=== PATIENT | female | born 1985 | race Caucasian/White ===

== ENCOUNTER 2017-12-26 12:05 | Emergency (ER) | payer OTHER ==
[2017-12-26 22:29] VITALS: BP 118/74; PULSE 116; RESP 18; TEMP 98.5; O2SAT 98
--- NOTE | 2017-12-27 08:59 | OBHP ---
Datetime: 12/26/2017 13:11 IP Adm Impression: Postterm, intrauterine IP Admit Plan: Observation/Evaluation; Discharge home (Annotations: Data stored by CPN on behalf of user) Admit Comment, IP Provider: 32 y/o , 40.1 weeks with LMP 03/20/17 and TONIA of 12/25/10 presents to [facility] with uterine contractions. Uterine contractions, pressure and low back pain started at 10PM last night, every 10 mins lasting for 30 secs till 8AM this morning. Since than patient reports having ir regular contractions. Denies any LOF, vaginal bleeding, nausea, vomiting, diarrhea. Tolerating diet w ell PO. PNC: Dr. Jara course: Hx of BP>130/80 on 2 occasions and tachycardia furing POBHx: None PGynHx: Denies abn pap PMHx: None Medications: Feosol and PNV F/H: GM- DM Allergies: None Social H/X: Denies smoking/alcohol/drugs PE: General: No acute distress, Well Chest: Tachycardiac, No murmurs, S1S2 present Lungs: CTA B/L, No rales, rhonchi or wheeze Abdomen: Gravid, NT Ext: No calf tenderness, pedal edema SVE: Fingertip/soft/-3 A/P: 32 y/o , 40.1 weeks with LMP 03/20/17 and TONIA of 12/25/10 presents to [facility] with uterine con tractions. - Post term pregnnacy Plan - EFM and [place] monitoring - NST ractive, Accelerations, No decelerations, Irregular contractions - Patient advised to continue home BP monitoring twice a day - Maintain hydration, Continue walking and regular diet as tolerated - F/U with Dr. Jara/Dr. Reeves on 12/30/17 - Consider IOL if no progression till 41 weeks or 12/31/17. - All question answered, pt verbalized understanding - Labor precautions provided Deni Kelley, PGY1 Pelvic Type - PN: Not Done Extremities - PN: Normal Abdomen - PN: Normal Back - PN: Not Done Breast - PN: Not Done Lungs - PN: Normal Heart - PN: Normal Thyroid - PN: Not Done Neurologic - PN: Normal HEENT - PN: Normal General - PN: Normal FHR - Baseline A Provider: 140 Membranes, Provider: Intact Contraction Comments Provider: Irregular Comments, ACOG Physical Exam: General: No acute distress, Well Chest: Tachycardiac, No murmurs, S1S2 present Lungs: CTA B/L, No rales, rhonchi or wheeze Abdomen: Gravid, NT Ext: No calf tenderness, pedal edema SVE: Fingertip/soft/-3 EGA AdmitDate IP: 40.1 Vital Signs Provider: Reviewed IP Chief Complaint: Uterine contractions; Maternal discomfort NICHD Variability Prov Fetus A: Marked >25bpm NICHD Accel Fetus A IP Provider: 15X15 FHR Category Provider Fetus A: Category I NICHD Decel Fetus A IP Provider: None Dilatation, Provider: 0 Effacement, Provider: soft Station, Provider: -3 Genitourinary Exam: Normal DTRs - PN: Not Done
== END 2017-12-26 13:35 | disposition home or self-care (01) ==
LOC: H.EROB2 12:05 → H.EROB 13:07 → H.EROB2 13:35
DX: O47.1 False labor at or after 37 completed weeks of gestation (principal); O48.0 Post-term pregnancy; Z3A.40 40 weeks gestation of pregnancy; O26.93 Pregnancy related conditions, unspecified, third trimester; R10.2 Pelvic and perineal pain; M54.5 Low back pain

== ENCOUNTER 2017-12-30 14:00 | Inpatient (IN) | payer OTHER ==
[2017-12-30 15:25] VITALS: BMI 25.5
[2017-12-30] MEDS: Lactated Ringer's 1,000 ML IV SCH ×2 (15:45→17:10)
[2017-12-30 16:11] LABS: BASO % 0.2 % (0.0-2.0); EOS % 0.2 % (0.0-4.0); HEMOGLOBIN 12.9 g/dL (12.0-16.0); LYMPH # 1.7 K/uL (1.0-4.3); MEAN CELL VOLUME 83.5 fl (81.0-99.0); MEAN CORPUSCULAR HEMOGLOBIN 28.5 pg (27.0-31.0); MEAN CORPUSCULAR HGB CONC 34.2 g/dL (33.0-37.0); MEAN PLATELET VOLUME 8.7 fl (7.2-11.7); MONO # 1.1 K/uL (0.0-0.8); NEUT # 15.7 K/uL (1.8-7.0); NEUT % 84.6 % (50.0-75.0); PLATELET COUNT 216 K/uL (130-400); RBC 4.53 Mil/uL (3.80-5.20); RED CELL DISTRIBUTION WIDTH 20.4 % (11.5-14.5); WHITE BLOOD COUNT 18.5 K/uL (4.8-10.8)
--- NOTE | 2017-12-30 17:08 | OBADHP ---
Datetime: 12/30/2017 15:24 Admit Comment, IP Provider: 32 y/o , 40.5 weeks, based on LMP 03/20/17 and TONIA of 12/25/10 present s to [facility] with uterine contractions and maternal discomfort. Patient came to [facility] on 12/26/17 and 0 for similar contractions but patient reports contractions are every 5 minutes, pressure with LOF at around 13:45 today. As per patient Dr. Jara saw her and told that she is 2-3 cm dialted. Reports feel ing normal movements. Denies vaginal bleeding, nausea, vomiting, diarrhea. Tolerating diet well PO. PNC: Dr. Jara course: Hx of BP>130/80 on 2 occasions and tachycardia during , Home BP monitori ng POBHx: None PGynHx: Denies abn pap PMHx: None Medications: Feosol and PNV F/H: GM- DM Allergies: None Social H/X: Denies smoking/alcohol/drugs PE: General: Mild distress Chest: Tachycardiac, No murmurs, S1S2 present Lungs: CTA B/L, No rales, rhonchi or wheeze Abdomen: Gravid, NT Ext: No calf tenderness, No pedal edema SSE: Pooling of clear fluid in posterior fornix, No active vaginal bleeding A/P: 32 y/o , 40.5 weeks, based on LMP 03/20/17 and TONIA of 12/25/10 presents to [facility] with uterin e contractions and maternal discomfort. - Early labor - Ruptured membrane - Postterm - EFM and toco monitoring - Regular contractions, NST reactive, Baseline 150 with marked accelerations, No decelerations. - 2-3 cm dialted today as per Dr. Jara - Clear liquid diet/juice - Admit patient to unit Addendum by Dr. Reeves: I have evaluated the patient independently and I agree with the above FHR - Baseline A Provider: 150 Amniotic Fluid Color, Provider: Clear Membranes, Provider: Ruptured Contraction Comments Provider: Regular Comments, ACOG Physical Exam: General: Mild distress Chest: Tachycardiac, No murmurs, S1S2 present Lungs: CTA B/L, No rales, rhonchi or wheeze Abdomen: Gravid, NT Ext: No calf tenderness, No pedal edema SSE: Pooling of clear fluid in posterior fornix, No active vaginal bleeding Pool Provider: Positive Vital Signs Provider: Reviewed IP Chief Complaint: Uterine contractions; Suspected ruptured membranes; Maternal discomfort NICHD Variability Prov Fetus A: Moderate 6-25bpm NICHD Accel Fetus A IP Provider: 15X15 EGA AdmitDate IP: 40.5 IP Adm Impression: Postterm, intrauterine ; Ruptured Membranes IP Admit Plan: Admit to unit; Observation/Evaluation Datetime: 12/28/2017 12:03 Pelvic Type - PN: Adequate Extremities - PN: Normal Abdomen - PN: Normal Lungs - PN: Normal Heart - PN: Normal Neurologic - PN: Normal HEENT - PN: Normal General - PN: Normal Presentation-Admit: Vertex FHR Category Provider Fetus A: Category I NICHD Decel Fetus A IP Provider: None Dilatation, Provider: 0 Effacement, Provider: 0 Station, Provider: -3 Genitourinary Exam: Normal Datetime: 12/26/2017 13:11 Back - PN: Not Done Breast - PN: Not Done Thyroid - PN: Not Done DTRs - PN: Not Done
[2017-12-30 17:23] LABS: LYMPHOCYTE 13 % (20-50); MONOCYTE 6 % (0-10); NEUTROPHIL 81 % (42-75); TOTAL CELLS COUNTED 100
[2017-12-30 17:24] LABS: ANISOCYTOSIS MODERATE; OVALOCYTES SLIGHT; PLATELET ESTIMATE NORMAL (NORMAL)
[2017-12-30] MEDS ORDERED: Oxytocin 30 UNIT 30 UNITS/500 ML BAG IV ONE (18:42)
[2017-12-30] MEDS: Fentanyl/Bupivacaine HCl 250 ML EPI ONE ×2 (18:47→18:48)
--- NOTE | 2017-12-30 18:58 | OBPN ---
Datetime: 12/30/2017 18:44 IP Progress Impression: Normal progression of labor IP Informed Consent Obtain: Vaginal Delivery IP Procedures: Sterile Vag Exam IP Progress Plan: Continue present management Membranes, Provider: Ruptured Contraction Comments Provider: q 3 mins FHR - Baseline A Provider: 150 IP Progress Note Comment: Patient evaluated, comfortable s/p epidural VE=/-1 SOH=200 mod mejia, +accels, no decels TOCO - ctxning q 3 mins A/P 1. Patient ruptured now 7cm, rom. Will start pitocin for augmentaton 2. CEFM and TOCO 3. Re-evaluate as needed Vital Signs Provider: Reviewed; Within Normal Limits NICHD Accel Fetus A IP Provider: 15X15 NICHD Variability Prov Fetus A: Moderate 6-25bpm Dilatation, Provider: 7 Effacement, Provider: 90 Station, Provider: -1 NICHD Decel Fetus A IP Provider: None Datetime: 12/30/2017 15:24 Pool Provider: Positive Amniotic Fluid Color, Provider: Clear Datetime: 12/28/2017 12:03 Presentation-Admit: Vertex FHR Category Provider Fetus A: Category I
[2017-12-30] MEDS ORDERED: Lidocaine 1% MPF (30 ml) Inj ONE (23:20)
[2017-12-31] MEDS: Lactated Ringer's 1,000 ML IV SCH ×3 (02:45→19:35)
--- NOTE | 2017-12-31 07:41 | OBPN ---
Datetime: 12/31/2017 07:34 IP Progress Impression: Arrest of dilatation/descent IP Informed Consent Obtain: Section Delivery Contraction Comments Provider: ctxns q 2 mins FHR - Baseline A Provider: 160 IP Progress Note Comment: Patient evaluated , has been pushing for 5 hours with no delivery. Discuss ed with patient she is considered an arrest of labor, recommendation is for for delivery. A dvised of risks/benefits of surgery including risk of bleeding, infection, damage to surrounding orga ns. Patient signed informed consent, Ancef to be given pre-operatively, pt en route to OR when availa ble Vital Signs Provider: Reviewed; Within Normal Limits NICHD Accel Fetus A IP Provider: 15X15 NICHD Variability Prov Fetus A: Moderate 6-25bpm Dilatation, Provider: 10 Effacement, Provider: 100 Station, Provider: 2 NICHD Decel Fetus A IP Provider: None Datetime: 12/30/2017 19:52 Membranes, Provider: Ruptured FHR Category Provider Fetus A: Category I
[2017-12-31] MEDS ORDERED: Phenylephrine 10 mg/ml Inj ONE (07:43)
[2017-12-31] MEDS ORDERED: CHLOROPROCAINE HCL 3% IJ ONE (07:43)
[2017-12-31] MEDS ORDERED: ePHEDrine 50 mg/ml Inj ONE (07:43)
[2017-12-31] MEDS ORDERED: ceFAZolin 2 GM in Sodium Chloride 0.9% 100 ML IVPB ONE (07:45)
[2017-12-31] MEDS ORDERED: Oxytocin 30 UNIT 30 UNITS/500 ML BAG IV ONE (07:54)
[2017-12-31] MEDS ORDERED: OXYTOCIN/0.9 % NS 20 UNIT/1,000 ML BAG IV SCH (08:00)
[2017-12-31] MEDS ORDERED: Morphine 1 mg/ml preservative-free Inj(Duramorph) ONE (08:22)
[2017-12-31] MEDS ORDERED: Absorbable Gelatin Sponge Size 12-7 ONE (09:41)
[2017-12-31] MEDS ORDERED: Oxycodone/Acetaminophen 5/325 mg Tab PO PRN (10:26)
[2017-12-31] MEDS ORDERED: Morphine 1 mg/ml preservative-free Inj(Duramorph) EPI ONE (10:50)
[2017-12-31] MEDS ORDERED: DiphenhydrAMINE 50 mg/ml Inj IVP PRN (10:50)
[2017-12-31] MEDS ORDERED: Phenylephrine 0.25% NASAL Spray (15ML) NAS PRN (19:57)
[2017-12-31] MEDS ORDERED: Nasal Spray(Ocean spray) NAS PRN (20:00)
[2018-01-01] MEDS: Lactated Ringer's 1,000 ML IV SCH (02:09)
[2018-01-01 06:35] LABS: HEMOGLOBIN 9.3 g/dL (12.0-16.0); MEAN CELL VOLUME 86.1 fl (81.0-99.0); MEAN CORPUSCULAR HEMOGLOBIN 28.9 pg (27.0-31.0); MEAN CORPUSCULAR HGB CONC 33.5 g/dL (33.0-37.0); RBC 3.22 Mil/uL (3.80-5.20); RED CELL DISTRIBUTION WIDTH 20.1 % (11.5-14.5); WHITE BLOOD COUNT 16.8 K/uL (4.8-10.8)
[2018-01-01] MEDS ORDERED: Nasal Spray(Ocean spray) NAS PRN (07:21)
[2018-01-01] MEDS ORDERED: Oxycodone/Acetaminophen 5/325 mg Tab PO PRN (07:21)
[2018-01-01] MEDS: Multivitamin With Minerals Tab PO SCH (08:42)
[2018-01-01] MEDS ORDERED: Multivitamin With Minerals Tab PO SCH (09:00)
--- NOTE | 2018-01-01 12:59 | OBPPN ---
Datetime: 01/01/2018 10:00 PP Pain Prov: Within normal limits PP Nausea Prov: Denies PP Flatus Prov: No PP BM Prov: No PP Breasts Prov: Normal PP Heart Prov: Normal PP Lungs Prov: Normal PP Abdomen/Uterus Prov: Normal PP Vulva/Perineum Prov: Normal PP Extremities Prov: Normal PP C/S Incision Prov: Normal PP Progress Prov: Normal PP Comments Phys Exam Prov: hgb12.9--9.3 today PP Impression Prov: Normal progression PP Plan Prov: Continue present management; consult PP Progress Note Prov: s: tolerated reg diet. denies malaise, palpitations, syncope denies flatus i: pod1 s/p prim cd Decreased HGB Tachycardia since admission Hemodynamically stable with norml orthostatics and good urine output p: repeat cbc ambulate senokot s IS IP PP Procedures: None Vital Signs Provider PP: Reviewed Vital Signs Provider Details PP: [id number] PP// 100-130 AP
[2018-01-01 14:17] LABS: BASO % 0.1 % (0.0-2.0); EOS # 0.2 K/uL (0.0-0.7); EOS % 0.9 % (0.0-4.0); HEMOGLOBIN 9.9 g/dL (12.0-16.0); LYMPH # 1.8 K/uL (1.0-4.3); LYMPH % 9.7 % (20.0-40.0); MEAN CELL VOLUME 84.7 fl (81.0-99.0); MEAN CORPUSCULAR HEMOGLOBIN 29.1 pg (27.0-31.0); MEAN CORPUSCULAR HGB CONC 34.3 g/dL (33.0-37.0); MEAN PLATELET VOLUME 8.1 fl (7.2-11.7); MONO # 0.9 K/uL (0.0-0.8); MONO % 4.9 % (0.0-10.0); NEUT # 16.1 K/uL (1.8-7.0); NEUT % 84.4 % (50.0-75.0); NRBC % 0.1 % (0.0-0.0); RBC 3.39 Mil/uL (3.80-5.20); RED CELL DISTRIBUTION WIDTH 19.5 % (11.5-14.5); WHITE BLOOD COUNT 19.1 K/uL (4.8-10.8)
[2018-01-01] MEDS: Simethicone 80 mg Chewtab PO PRN (19:30)
--- NOTE | 2018-01-01 19:50 | OBPPN ---
Datetime: 01/01/2018 19:40 PP Progress Note Prov: Called by nurse who stated patient had an episode of bilious type EMESIS S: Patient states she tolerated breakfast and lunch well. She states that she had some pineapple p rune juice banana and then had the episode of emesis. She reports passing gas earlier this morning wh en she was using the bathroom and states it was just a small amount. Objective: Distended abdomen no guarding slight rebound; hypoactive bowel sounds; not appearing mo re distended since this morning Impression postop day #1 status post delivery with one episode of emesis Evaluate ileus Plan: Abdominal flat plate Ice chips until abdominal x-ray results Mylicon Patient spells advised to buy patient chewing gum with regular sugar
[2018-01-02] MEDS: Docusate-Senna 50 mg-8.6 mg Tab PO SCH (00:43)
--- NOTE | 2018-01-02 05:10 | CP.PCM.CON ---
<Antwan Manrique - Last Filed: 01/02/18 07:44> History of Present Illness - History of Present Illness History of Present Illness: General Surgery Note for Dr. Kelley Reason for consult: Ileus, nausea/vomiting 32 F s/p POD#2 with no other significant PMH presents with complaint of a abdominal pain, nausea/vomiting. Patient was seen and evaluated on the Maternity Floor. Patient states yesterday afternoon she had some abdominal pain accompanied by an episode of nausea/vomiting with NBNB emesis. Patient reports eating prune juice and banana prior to the episode. She reports the pain at that time felt like "gas pains." Patient states her last BM was about 3 days ago before she delivered. ABXR was perfromed which revealed ileus. Overnight, she reports to passing flatus a few times. Patient currently denies any pain or nausea/vomiting. She reports to sleeping comfortably overnight and was able to breast feed this morning. Admits constipation. Denies fever/chills, chest pain, SOB, palpitations, diarrhea, incontinence, numbness/tingling, urinary symptoms. PMH: Denies Meds: As per MAR All: NKDA PSH: POD#2 FH: non-contributory Social: Denies tobacco/EtOH/illicit drug especially during , works as supervisor computer operations Review of Systems - Review of Systems All systems: reviewed and no additional remarkable complaints except (as per HPI ) Past Patient History - Past Social History Smoking Status: Never Smoked Meds Allergies/Adverse Reactions: Allergies Allergy/AdvReac Type Severity Reaction Status Date / Time No Known Allergies Allergy Verified 12/26/17 12:47 - Medications Medications: Current Medications Bisacodyl (Dulcolax) 10 mg WA ONCE PRN PRN Reason: Bladder Spasm Ibuprofen (Motrin Tab) 600 mg PO Q6H PRN PRN Reason: Pain, Mild (1-3) Last Admin: 01/01/18 08:42 Dose: 600 mg Multivitamins/Minerals (Therapeutic-M Tab) 1 tab PO DAILY CHEL Last Admin: 01/01/18 08:42 Dose: 1 tab Oxycodone/Acetaminophen (Percocet 5/325 Mg Tab) 1 tab PO Q4 PRN PRN Reason: Pain, moderate (4-7) Stop: 01/03/18 10:27 Senna/Docusate Sodium (Senokot S 50 Mg-8.6 Mg) 2 tab PO HS CHEL Last Admin: 01/02/18 00:43 Dose: 2 tab Simethicone (Mylicon Chew Tab) 80 mg PO TID PRN PRN Reason: Flatulence Last Admin: 01/01/18 19:30 Dose: 80 mg Sodium Chloride (Lamb Nasal [place]) 2 sprays LISS Q4 PRN PRN Reason: Nasal congestion Physical Exam - Constitutional Appears: No Acute Distress - Head Exam Head Exam: ATRAUMATIC, NORMOCEPHALIC - Eye Exam Eye Exam: EOMI, Normal appearance Pupil Exam: PERRL - ENT Exam ENT Exam: Mucous Membranes Moist - Neck Exam Neck exam: Positive for: Normal Inspection - Respiratory Exam Respiratory Exam: NORMAL BREATHING PATTERN - Cardiovascular Exam Cardiovascular Exam: REGULAR RHYTHM - GI/Abdominal Exam GI & Abdominal Exam: Distended, Soft. absent: Firm, Guarding, Hernia, Rebound, Rigid, Tenderness Additional comments: transverse suprapubic incision s/p - clean, dry, intact with steri- strips - Extremities Exam Extremities exam: Positive for: normal capillary refill, pedal pulses present. Negative for: calf tenderness - Back Exam Back exam: absent: CVA tenderness (L), CVA tenderness (R) - Neurological Exam Neurological exam: Alert, Oriented x3 - Psychiatric Exam Psychiatric exam: Normal Affect, Normal Mood - Skin Skin Exam: Dry, Intact, Normal Color, Warm Results - Labs Result Diagrams: 01/01/18 13:34 Labs: Laboratory Results - last 24 hr 01/01/18 01/01/18 05:35 13:34 WBC 16.8 H 19.1 H RBC 3.22 L 3.39 L Hgb 9.3 L D 9.9 L Hct 27.8 L 28.7 L MCV 86.1 D 84.7 MCH 28.9 29.1 MCHC 33.5 34.3 RDW 20.1 H 19.5 H Plt Count 176 211 MPV 8.1 Neut % (Auto) 84.4 H Lymph % (Auto) 9.7 L [place] % (Auto) 4.9 Eos % (Auto) 0.9 Baso % (Auto) 0.1 Neut # (Auto) 16.1 H Lymph # (Auto) 1.8 [place] # (Auto) 0.9 H Eos # (Auto) 0.2 Baso # (Auto) 0.0 Assessment & Plan - Assessment and Plan (Free Text) Assessment: 32F s/p POD#2 who presents with ileus; patient is passing flatus Plan: -CLD, ADAT -Stool softners -Simethicon -Chewing gum PRN -Pain control with non-opiates -Encourage OOB/Ambulation/IS -Monitor for bowel function -No surgical intervention needed at this time -Discharge planning as per BILLET STRAIGHTENER -Discussed with Dr. Warren Manrique PGY2 - Date & Time Date: 01/02/18 Time: 05:15 <David Kelley - Last Filed: 01/02/18 16:04> Meds - Medications Medications: Current Medications Bisacodyl (Dulcolax) 10 mg WA ONCE PRN PRN Reason: Bladder Spasm Bisacodyl (Dulcolax) 10 mg WA DAILY ONE Stop: 01/02/18 20:01 Ibuprofen (Motrin Tab) 600 mg PO Q6H PRN PRN Reason: Pain, Mild (1-3) Last Admin: 01/01/18 08:42 Dose: 600 mg Multivitamins/Minerals (Therapeutic-M Tab) 1 tab PO DAILY CHEL Last Admin: 01/02/18 09:49 Dose: 1 tab Oxycodone/Acetaminophen (Percocet 5/325 Mg Tab) 1 tab PO Q4 PRN PRN Reason: Pain, moderate (4-7) Stop: 01/03/18 10:27 Senna/Docusate Sodium (Senokot S 50 Mg-8.6 Mg) 2 tab PO HS CHEL Last Admin: 01/02/18 00:43 Dose: 2 tab Simethicone (Mylicon Chew Tab) 80 mg PO TID PRN PRN Reason: Flatulence Last Admin: 01/02/18 09:49 Dose: 80 mg Sodium Chloride (Lamb Nasal [place]) 2 sprays LISS Q4 PRN PRN Reason: Nasal congestion Results - Labs Result Diagrams: 01/01/18 13:34 Assessment & Plan - Assessment and Plan (Free Text) Plan: Discussed with the resident staff and agree with the above assessment and plan. I personally reviewed the available diagnostic images and imaging reports. KUB with ileus. Not clinically obstructed as passing flatus this am. Diet as tolerated. Replete electrolytes. minimize narcotics, bowel regimen.
--- NOTE | 2018-01-02 08:08 | OBDS ---
DELIVERY PERSONNEL Delivery Doctor: Deb Jara DO Scrub Nurse: Aziza Lynn OBT Voicer: Catherine Miller RN/SHABBIR Pereyra Anesthesiologist: Resident: na MATERNAL INFORMATION Delivery Anesthesia: Spinal Medications in Delivery: Pitocin 20 units in 1000 cc at 125 cc/hr. Estimated Blood Loss (ml): 800 Placenta Cultured: No Maternal Complications: None Other Maternal Complications: Failure to descent RN Comments: Primary C section tolerated well by pt.C section attended by and .No a cute distress noted Provider Comments: Pre Op Dx : failure of descent Post Op Dx : same / left pelvic adhesions (possible endometriosisi) Procedure: Primary LTCS via Pfannenstiel incision Surgeon Dr Jara Asst Dr Enrique Nino OB fellow Anest: Dr Quiroga Anest: spinal Findings; Live male delivered from cephalic presentation 9,9 Termnial thick meconium noted Placenta delivered intact spontaneously Ovaries and tubes WNL Area left posterior uterus - adhesions/evidence of endometriosis She remained stable. EBL 800cc LABOR SUMMARY EDC: 12/25/2017 00:00 No. Babies in Womb: 1 Attempted: No Labor Anesthesia: Epidural LABOR INFORMATION Reason for Induction: Not Applicable Onset of Labor: 12/30/2017 17:40 Complete Dilatation: 12/31/2017 02:00 Oxytocin: Augmentation Group B Beta Strep: Negative Antibiotics # of Doses: 1-pre op Antibiotics Time of Last Dose: 0850 Steroids Given: None Reason Steroids Not Administered: Not Applicable MEMBRANES Membranes Rupture Method: Spontaneous Rupture of Membranes: 12/30/2017 18:35 Length of Rupture (hrs): 14.77 Amniotic Fluid Color: Clear Amniotic Fluid Amount: Small Amniotic Fluid Odor: Normal STAGES OF LABOR Stage 1 hrs: 8 Stage 1 min: 20 Stage 2 hrs: 7 Stage 2 min: 21 Stage 3 hrs: 0 Stage 3 min: 1 Total Time in Labor hrs: 15 Total Time in Labor min: 42 CSECTION DELIVERY Primary Indication: Failure of Descent CSection Urgency: Non Elective CSection Incidence: Primary Labor: Labor Elective: Nonelective CSection Incision: Lower Uterine Transverse Uterine Closure: Double-layer closure BABY A INFORMATION Delivery Date/Time: 12/31/2017 09:21 Method of Delivery: Born in Route : No : N/A Forceps: N/A Vacuum Extraction: N/A Shoulder Dystocia : No SHOULDER DYSTOCIA BABY A Delivery Date/Time: 12/31/2017 09:21 PRESENTATION/POSITION BABY A Presentation: Cephalic Cephalic Presentation: Vertex Breech Presentation: N/A PLACENTA INFORMATION BABY A Placenta Delivery Time : 12/31/2017 09:22 Placenta Method of Delivery: Manual Removal Placenta Status: Delivered SCORES BABY A Heart Rate 1 min: >100 bpm Resp Effort 1 min: Good Cry Reflex Irritability 1 min: Cough or Sneeze or Pulls Away Muscle Tone 1 min: Active Motion Color 1 min: Body [place], Extremities Blue Resuscitation Effort 1 min: Tactile Stimulation SCORE 1 MIN: 9 Heart Rate 5 min: >100 bpm Resp Effort 5 min: Good Cry Reflex Irritability 5 min: Cough or Sneeze or Pulls Away Muscle Tone 5 min: Active Motion Color 5 min: Body [place], Extremities Blue Resuscitation Effort 5 min: Tactile Stimulation SCORE 5 MIN: 9 INFORMATION BABY A Gestational Age at Delivery: 40.6 Gestational Status: Term Outcome : Liveborn Infant Condition : Stable Infant Sex: Male IDENTIFICATION/MEDS BABY A ID Band Number: [id number] ID Band Location: Left Leg; Left Arm Vitamin K Given : Not Given Erythromycin Given: Not Given WEIGHT/LENGTH BABY A Infant Birthweight (gms): 3210 Infant Weight (lb): 7 Infant Weight (oz): 1 Length Inches: 21.00 Infant Length cms: 53.3 CORD INFORMATION BABY A No. Cord Vessels: 3 Nuchal Cord : N/A Nuchal Cord Other: na Cord Blood Taken: Yes Suction: Mouth ASSESSMENT BABY A Complications: None Physical Findings at Delivery: Within Normal Limits Infant Respirations: Appears Normal Living Supervisor/ALS Called : No Care By: ?Aldo Archer Transferred To: Remains with Mother
--- NOTE | 2018-01-02 08:08 | OBDS ---
DELIVERY PERSONNEL Delivery Doctor: Deb Jara DO Scrub Nurse: Aziza Lynn OBT Rejogger: Catherine Miller RN/SHABBIR Pereyra Anesthesiologist: Resident: na MATERNAL INFORMATION Delivery Anesthesia: Spinal Medications in Delivery: Pitocin 20 units in 1000 cc at 125 cc/hr. Estimated Blood Loss (ml): 800 Placenta Cultured: No Maternal Complications: None Other Maternal Complications: Failure to descent RN Comments: Primary C section tolerated well by pt.C section attended by and .No a cute distress noted Provider Comments: Pre Op Dx : failure of descent Post Op Dx : same / left pelvic adhesions (possible endometriosisi) Procedure: Primary LTCS via Pfannenstiel incision Surgeon Dr Jara Asst Dr Enrique Nino OB fellow Anest: Dr Quiroga Anest: spinal Findings; Live male delivered from cephalic presentation 9,9 Termnial thick meconium noted Placenta delivered intact spontaneously Ovaries and tubes WNL Area left posterior uterus - adhesions/evidence of endometriosis She remained stable. EBL 800cc LABOR SUMMARY EDC: 12/25/2017 00:00 EDC: 12/25/2017 00:00 EDC: 12/25/2017 00:00 No. Babies in Womb: 1 Attempted: No Labor Anesthesia: Epidural LABOR INFORMATION Reason for Induction: Not Applicable Onset of Labor: 12/30/2017 17:40 Complete Dilatation: 12/31/2017 02:00 Oxytocin: Augmentation Group B Beta Strep: Negative Group B Beta Strep: Negative Antibiotics # of Doses: 1-pre op Antibiotics Time of Last Dose: 0850 Steroids Given: None Reason Steroids Not Administered: Not Applicable MEMBRANES Membranes Rupture Method: Spontaneous Rupture of Membranes: 12/30/2017 18:35 Length of Rupture (hrs): 14.77 Amniotic Fluid Color: Clear Amniotic Fluid Amount: Small Amniotic Fluid Odor: Normal STAGES OF LABOR Stage 1 hrs: 8 Stage 1 min: 20 Stage 2 hrs: 7 Stage 2 min: 21 Stage 3 hrs: 0 Stage 3 min: 1 Total Time in Labor hrs: 15 Total Time in Labor min: 42 CSECTION DELIVERY Primary Indication: Failure of Descent CSection Urgency: Non Elective CSection Incidence: Primary Labor: Labor Elective: Nonelective CSection Incision: Lower Uterine Transverse Uterine Closure: Double-layer closure BABY A INFORMATION Delivery Date/Time: 12/31/2017 09:21 Method of Delivery: Born in Route : No : N/A Forceps: N/A Vacuum Extraction: N/A Shoulder Dystocia : No SHOULDER DYSTOCIA BABY A Delivery Date/Time: 12/31/2017 09:21 PRESENTATION/POSITION BABY A Presentation: Cephalic Presentation: Cephalic Cephalic Presentation: Vertex Breech Presentation: N/A PLACENTA INFORMATION BABY A Placenta Delivery Time : 12/31/2017 09:22 Placenta Method of Delivery: Manual Removal Placenta Status: Delivered SCORES BABY A Heart Rate 1 min: >100 bpm Resp Effort 1 min: Good Cry Reflex Irritability 1 min: Cough or Sneeze or Pulls Away Muscle Tone 1 min: Active Motion Color 1 min: Body [place], Extremities Blue Resuscitation Effort 1 min: Tactile Stimulation SCORE 1 MIN: 9 Heart Rate 5 min: >100 bpm Resp Effort 5 min: Good Cry Reflex Irritability 5 min: Cough or Sneeze or Pulls Away Muscle Tone 5 min: Active Motion Color 5 min: Body [place], Extremities Blue Resuscitation Effort 5 min: Tactile Stimulation SCORE 5 MIN: 9 INFANT INFORMATION BABY A Gestational Age at Delivery: 40.6 Gestational Status: Term Outcome : Liveborn Infant Condition : Stable Sex: Male IDENTIFICATION/MEDS BABY A ID Band Number: [id number] ID Band Location: Left Leg; Left Arm Vitamin K Given : Not Given Erythromycin Given: Not Given WEIGHT/LENGTH BABY A Birthweight (gms): 3210 Infant Weight (lb): 7 Infant Weight (oz): 1 Length Inches: 21.00 Infant Length cms: 53.3 CORD INFORMATION BABY A No. Cord Vessels: 3 Nuchal Cord : N/A Nuchal Cord Other: na Cord Blood Taken: Yes Suction: Mouth ASSESSMENT BABY A Complications: None Physical Findings at Delivery: Within Normal Limits Infant Respirations: Appears Normal Project Construction Assistant Manager/ALS Called : No Care By: ?Aldo Archer Transferred To: Remains with Mother
--- NOTE | 2018-01-02 08:08 | OBPPN ---
Datetime: 01/02/2018 07:30 PP Pain Prov: Within normal limits PP Nausea Prov: Denies PP Flatus Prov: Yes PP BM Prov: No PP Breasts Prov: Normal PP Heart Prov: Normal PP Lungs Prov: Normal PP Abdomen/Uterus Prov: Normal PP CVA Tenderness Prov: Normal PP Extremities Prov: Normal PP C/S Incision Prov: Normal PP Progress Prov: Normal PP Plan Prov: Continue present management PP Impression Other Prov: Post Op ileus - improving PP Progress Note Prov: OB Hospitalist on-call... Last night sign out rec'd at 8pm...AXR ordered and followed - report verbal read as dilated loops/ ileus. Surgery consult obtained...clear fluids. Since last night she feels much better after passing gas. Her belly is less distended. A: S/P day 2 post op ileus PLAN: increase diet/ambulate Vital Signs Provider PP: Reviewed
[2018-01-02] MEDS: Simethicone 80 mg Chewtab PO PRN ×2 (09:49→17:14)
[2018-01-02] MEDS: Multivitamin With Minerals Tab PO SCH (09:49)
--- NOTE | 2018-01-02 11:31 | RAD ---
Date of service: 01/01/2018 HISTORY: nausea, vomiting COMPARISON: No prior. FINDINGS: BOWEL: There is mild gaseous distension of the small bowel loops and colon. There is stool in the rectum. BONES: Normal. OTHER FINDINGS: None. IMPRESSION: Findings are most compatible with postoperative ileus.
[2018-01-03] MEDS: Docusate-Senna 50 mg-8.6 mg Tab PO SCH (00:12)
[2018-01-03] MEDS: Multivitamin With Minerals Tab PO SCH (09:30)
--- NOTE | 2018-01-03 09:36 | OBDCSUM ---
Datetime: 01/03/2018 09:34 Discharged to, Provider: Home Disch Instr Activity: Normal activity Disch Instr Diet: Regular Discharge Instructions, Provider: Routine instructions given Discharge Diagnosis, Provider: Term Delivered Disch Referrals: None Contraception discussed, Prov: Yes Disch Activity Restrictions: No sexual activity; Nothing in vagina - [place], tampons, douche Discharge Comment, Provider: Post Op Ileus - placed on liquid diet/ ambulation and meds + flatus and BM on discharge day
[2018-01-04 03:19] VITALS: BP 127/79; PULSE 78; RESP 16; TEMP 98.8
== END 2018-01-03 15:00 | disposition home or self-care (01) | DRG 766 ==
LOC: H.EROB2 14:00 → H.L&D 15:26 → H.OB/GYN 12-31 15:45
PROVIDERS: ADMIT Obstetrics & Gynecology; ATTEND Obstetrics & Gynecology
PROC: 4A1HXCZ Monitoring of Products of Conception, Cardiac Rate, External Approach (ICD-10-PCS; 2017-12-30)
PROC: 10D00Z1 Extraction of Products of Conception, Low, Open Approach (ICD-10-PCS; principal; 2017-12-31)
DX: O48.0 Post-term pregnancy (principal); Z37.0 Single live birth; O77.0 Labor and delivery complicated by meconium in amniotic fluid; O62.0 Primary inadequate contractions; N73.6 Female pelvic peritoneal adhesions (postinfective); O32.4XX0 Maternal care for high head at term, not applicable or unspecified; Z3A.40 40 weeks gestation of pregnancy; Z98.891 History of uterine scar from previous surgery

== ENCOUNTER 2018-01-13 14:15 | Emergency (ER) | payer OTHER ==
[2018-01-13 14:15] VITALS: BMI 25.5
--- NOTE | 2018-01-13 15:00 | ED PDOC ---
Lower Extremity Pain/Injury Time Seen by Provider: 01/13/18 14:27 Chief Complaint (Nursing): Lower Extremity Problem/Injury Chief Complaint (Provider): Calf pain History Per: Patient Onset/Duration Of Symptoms: Hrs (since last night ) Current Symptoms Are (Timing): Better Additional Complaint(s): 32 year old female presents to the ED for evaluation of right calf pain which she experienced last night. Patient denies pain currently. She states she notified Dr. Jara who advised her to obtain an ultrasound to rule out DVT. Patient notes was done by Dr. Jara on December 31. 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 Denies SOB, CP, fever, abdominal pain, n/v/d, and recent travel. LMP was February of last year due to . PMD: Dr. Jara Past Medical History Reviewed: Historical Data, Nursing Documentation, Vital Signs Vital Signs: Last Vital Signs Temp 98.4 F 01/13/18 14:22 Pulse 120 H 01/13/18 14:22 Resp 18 01/13/18 14:22 BP 143/91 H 01/13/18 14:22 Pulse Ox 99 01/13/18 14:22 - Medical History PMH: No Chronic Diseases - Surgical History Surgical History: - Family History Family History: States: Unknown Family Hx - Social History Current smoker - smoking cessation education provided: No Alcohol: None Drugs: Denies - Home Medications Home Medications: Ambulatory Orders Medication Instructions Recorded Prenat 115/Iron Fum/Folic/Dss 1 each PO DAILY 12/30/17 [ 19 Tablet] Acetaminophen [Acetaminophen 8 650 mg PO Q8 PRN #21 tablet.er 01/13/18 Hour] - Allergies Allergies/Adverse Reactions: Allergies Allergy/AdvReac Type Severity Reaction Status Date / Time No Known Allergies Allergy Verified 12/26/17 12:47 Review of Systems ROS Statement: Except As Marked, All Systems Reviewed And Found Negative Cardiovascular: Negative for: Chest Pain Respiratory: Negative for: Shortness of Breath Gastrointestinal: Negative for: Nausea, Vomiting, Abdominal Pain, Diarrhea Musculoskeletal: Positive for: Other (Right calf pain) Physical Exam - Reviewed Nursing Documentation Reviewed: Yes Vital Signs Reviewed: Yes - Physical Exam Comments: GENERAL APPEARANCE: Patient is awake, alert, oriented x 3, in no acute distress. Resting comfortably. SKIN: Warm, dry; (-) cyanosis. NECK: Supple, FROM LOWER EXTREMITY: (-) Calf tenderness/swelling/erythema (-) palpable cord (+) full ROM of lower extremities throughout (-) effusion (-) crepitus (+) gait steady. CARDIOVASCULAR: (+) distal pulse NEUROLOGIC: (+) distal sensation intact throughout CARDIAC: (-) irregularity RESPIRATORY: lungs clear to auscultation bilaterally (-) rales (-) rhonchi (-) wheezing - ECG O2 Sat by Pulse Oximetry: 99 (RA) Pulse Ox Interpretation: Normal Medical Decision Making Medical Decision Making: Initial Impression: Calf pain r/o DVT Initial Plan: -Lower Extremity US -Dr Jara states patient does not require labs at this time. 1720 Patient in U/S. 1740 U/S reviewed, radiology report follows Date of service: 01/13/2018 PROCEDURE: Right lower extremity venous duplex Doppler. HISTORY: d/o DVT COMPARISON: None available. TECHNIQUE: Common femoral, superficial femoral, popliteal and posterior tibial veins were evaluated. Flow was assessed with color Doppler, compressibility, assessment of phasic flow and augmentation response. FINDINGS: COMMON FEMORAL VEIN: Unremarkable. SUPERFICIAL FEMORAL VEIN: Unremarkable. POPLITEAL VEIN: Unremarkable. POSTERIOR TIBIAL VEIN: Unremarkable. OTHER FINDINGS: None. IMPRESSION: No evidence of deep venous thrombosis in the right lower extremity. Repeat HR: 95 Repeat BP: 133/75 On re-evaluation, patient reports improvement of symptoms. On exam, patient remains AAOx3, in no acute distress. Lungs clear to auscultation, cardiac RRR, abdomen soft, non-tender, repeat neuro exam shows no focal findings. Vitals stable. Lab/Diagnostic results d/w the patient in great detail. Diagnosis of calf pain, muscle pain of lower extremity d/w the patient. Based on history, exam and diagnostic results, plan will be for outpatient follow up with Dr Jara. Patient instructed to follow-up with pmd / referral provided / the clinic in 1- 2 days without fail. Advised to take medication as prescribed. Return to the emergency room at any time for any new or worsening symptoms. Patient states she fully agrees with and understands discharge instructions. States that she agrees with the plan and disposition. Verbalized and repeated discharge instructions and plan. I have given the patient opportunity to ask any additional questions. Scribe Attestation: Documented by Yves Dorantes acting as a scribe for Joann GONZALEZ. Provider Scribe Attestation: All medical record entries made by the Scribe were at my direction and personally dictated by me. I have reviewed the chart and agree that the record accurately reflects my personal performance of the history, physical exam, medical decision making, and the department course for this patient. I have also personally directed, reviewed, and agree with the discharge instructions and disposition. Disposition - Clinical Impression Clinical Impression: Right calf pain, Pain of lower extremity - Patient ED Disposition Is Patient to be Admitted: No Counseled Patient/Family Regarding: Studies Performed, Diagnosis, Need For Followup, Rx Given - Disposition Referrals: Michael Jara DO [Staff Provider] - Disposition: Routine/Home Disposition Time: 17:40 Condition: STABLE Additional Instructions: The emergency medical care you received today was directed at your acute symptoms. If you were prescribed any medication, please fill it and take as directed. It may take several days for your symptoms to resolve. Return to the Emergency Department if your symptoms worsen, do not improve, or if you have any other problems. Please contact your doctor in 2 days for re-evaluation and follow up / or call one of the physicians/clinics you have been referred to that are listed on the Patient Visit Information form that is included in your discharge packet. Bring any paperwork you were given at discharge with you along with any medications you are taking to your follow up visit. Our treatment cannot replace ongoing medical care by a primary care provider (PCP) outside of the emergency department. Prescriptions: Acetaminophen [Acetaminophen 8 Hour] 650 mg PO Q8 PRN #21 tablet.er PRN Reason: Pain, Moderate (4-7) Instructions: Muscle and Bone Pain (DC) Forms: [employer] (Lao) Print Language: WOLOF - POA Present On Arrival: None
--- NOTE | 2018-01-13 17:34 | US ---
Date of service: 01/13/2018 PROCEDURE: Right lower extremity venous duplex Doppler. HISTORY: d/o DVT COMPARISON: None available. TECHNIQUE: Common femoral, superficial femoral, popliteal and posterior tibial veins were evaluated. Flow was assessed with color Doppler, compressibility, assessment of phasic flow and augmentation response. FINDINGS: COMMON FEMORAL VEIN: Unremarkable. SUPERFICIAL FEMORAL VEIN: Unremarkable. POPLITEAL VEIN: Unremarkable. POSTERIOR TIBIAL VEIN: Unremarkable. OTHER FINDINGS: None. IMPRESSION: No evidence of deep venous thrombosis in the right lower extremity.
[2018-01-13 17:53] VITALS: BP 133/75; PULSE 95; RESP 20; TEMP 98
[2018-01-13 17:58] VITALS: O2SAT 99
== END 2018-01-13 17:52 | disposition home or self-care (01) ==
LOC: H.ER 14:15
DX: M79.661 Pain in right lower leg (principal)